=== PATIENT | female | born 1970 | race Caucasian/White ===

== ENCOUNTER → 2024-08-25 16:02 | Outpatient (REF) | payer BC, SELFPAY | LOC: MRI 3T 16:02 | PROVIDERS: ATTENDING PHYSICIAN Nurse Practitioner Adult Health; FAMILY PHYSICIAN Family Medicine | DX: M50.30 Other cervical disc degeneration, unspecified cervical region (principal); M54.2 Cervicalgia | CPT/HCPCS: 72141 ==